=== PATIENT | female | born 1960 | race Caucasian/White ===

== ENCOUNTER 2024-09-01 15:22 | Outpatient (CLI) | payer BC | END 2024-09-01 15:23 | disposition home or self-care (01) | LOC: CSHMAMMO 15:22 | PROVIDERS: ATTEND Internal Medicine | DX: Z12.31 Encounter for screening mammogram for malignant neoplasm of breast (principal) | CPT/HCPCS: 77063; 77067 ==

== ENCOUNTER 2025-04-23 15:23 | Outpatient (CLI) | payer BC | END 2025-04-23 15:24 | disposition home or self-care (01) | LOC: CSHWCC 15:23 | PROVIDERS: ATTEND Nurse Practitioner Family | DX: I83.028 Varicose veins of left lower extremity with ulcer other part of lower leg (principal); L97.921 Non-pressure chronic ulcer of unspecified part of left lower leg limited to breakdown of skin | CPT/HCPCS: 11042; 99213; G0463 ==

== ENCOUNTER 2025-04-27 15:30 | Outpatient (CLI) | payer BC | END 2025-04-27 15:31 | disposition home or self-care (01) | LOC: CSHWCC 15:30 | PROVIDERS: ATTEND Nurse Practitioner Family | DX: I83.028 Varicose veins of left lower extremity with ulcer other part of lower leg (principal); L97.921 Non-pressure chronic ulcer of unspecified part of left lower leg limited to breakdown of skin | CPT/HCPCS: 29581 ==

== ENCOUNTER 2025-04-30 15:17 | Outpatient (CLI) | payer BC | END 2025-04-30 15:18 | disposition home or self-care (01) | LOC: CSHWCC 15:17 | PROVIDERS: ATTEND Nurse Practitioner Family | DX: I83.028 Varicose veins of left lower extremity with ulcer other part of lower leg (principal); L97.921 Non-pressure chronic ulcer of unspecified part of left lower leg limited to breakdown of skin | CPT/HCPCS: 11042 ==

== ENCOUNTER 2025-05-04 09:15 | Outpatient (CLI) | payer BC | END 2025-05-04 09:16 | disposition home or self-care (01) | LOC: CSHWCC 09:15 | PROVIDERS: ATTEND Nurse Practitioner Family | DX: I83.028 Varicose veins of left lower extremity with ulcer other part of lower leg (principal); L97.921 Non-pressure chronic ulcer of unspecified part of left lower leg limited to breakdown of skin | CPT/HCPCS: 29581 ==

== ENCOUNTER 2025-05-11 14:57 | Outpatient (CLI) | payer BC | END 2025-05-11 14:58 | disposition home or self-care (01) | LOC: CSHWCC 14:57 | PROVIDERS: ATTEND Nurse Practitioner Family | DX: I83.028 Varicose veins of left lower extremity with ulcer other part of lower leg (principal); L97.921 Non-pressure chronic ulcer of unspecified part of left lower leg limited to breakdown of skin ==

== ENCOUNTER 2025-05-14 14:03 | Outpatient (CLI) | payer BC | END 2025-05-14 14:04 | disposition home or self-care (01) | LOC: CSHWCC 14:03 | PROVIDERS: ATTEND Nurse Practitioner Family | DX: I83.028 Varicose veins of left lower extremity with ulcer other part of lower leg (principal); L97.921 Non-pressure chronic ulcer of unspecified part of left lower leg limited to breakdown of skin | CPT/HCPCS: 97597 ==

== ENCOUNTER 2025-05-19 14:58 | Outpatient (CLI) | payer BC | END 2025-05-19 14:59 | disposition home or self-care (01) | LOC: CSHWCC 14:58 | PROVIDERS: ATTEND Nurse Practitioner Family | DX: I83.028 Varicose veins of left lower extremity with ulcer other part of lower leg (principal); L97.921 Non-pressure chronic ulcer of unspecified part of left lower leg limited to breakdown of skin | CPT/HCPCS: 29581 ==

== ENCOUNTER 2025-05-22 14:03 | Outpatient (CLI) | payer BC | END 2025-05-22 14:04 | disposition home or self-care (01) | LOC: CSHWCC 14:03 | PROVIDERS: ATTEND Nurse Practitioner Family | DX: I83.028 Varicose veins of left lower extremity with ulcer other part of lower leg (principal); L97.921 Non-pressure chronic ulcer of unspecified part of left lower leg limited to breakdown of skin | CPT/HCPCS: 11042 ==

== ENCOUNTER 2025-05-26 15:20 | Outpatient (CLI) | payer BC | END 2025-05-26 15:21 | disposition home or self-care (01) | LOC: CSHWCC 15:20 | PROVIDERS: ATTEND Nurse Practitioner Family | DX: I83.028 Varicose veins of left lower extremity with ulcer other part of lower leg (principal); L97.921 Non-pressure chronic ulcer of unspecified part of left lower leg limited to breakdown of skin | CPT/HCPCS: 29581 ==

== ENCOUNTER 2025-05-29 14:46 | Outpatient (CLI) | payer BC | END 2025-05-29 14:47 | disposition home or self-care (01) | LOC: CSHWCC 14:46 | PROVIDERS: ATTEND Nurse Practitioner Family | DX: I83.028 Varicose veins of left lower extremity with ulcer other part of lower leg (principal); L97.921 Non-pressure chronic ulcer of unspecified part of left lower leg limited to breakdown of skin | CPT/HCPCS: 99213; G0463 ==

== ENCOUNTER 2025-06-05 14:52 | Outpatient (CLI) | payer BC | END 2025-06-05 14:53 | disposition home or self-care (01) | LOC: CSHWCC 14:52 | PROVIDERS: ATTEND Nurse Practitioner Family | DX: I83.028 Varicose veins of left lower extremity with ulcer other part of lower leg (principal); L97.921 Non-pressure chronic ulcer of unspecified part of left lower leg limited to breakdown of skin | CPT/HCPCS: 99213; G0463 ==

== ENCOUNTER 2025-06-12 15:00 | Outpatient (CLI) | payer BC | END 2025-06-12 15:01 | disposition home or self-care (01) | LOC: CSHWCC 15:00 | PROVIDERS: ATTEND Nurse Practitioner Family | DX: I83.028 Varicose veins of left lower extremity with ulcer other part of lower leg (principal); L97.921 Non-pressure chronic ulcer of unspecified part of left lower leg limited to breakdown of skin | CPT/HCPCS: 99212; G0463 ==

== ENCOUNTER 2025-06-26 15:04 | Outpatient (CLI) | payer BC | END 2025-06-26 15:05 | disposition home or self-care (01) | LOC: CSHWCC 15:04 | PROVIDERS: ATTEND Nurse Practitioner Family | DX: I83.028 Varicose veins of left lower extremity with ulcer other part of lower leg (principal); L97.921 Non-pressure chronic ulcer of unspecified part of left lower leg limited to breakdown of skin | CPT/HCPCS: 99212; G0463 ==